=== PATIENT | female | born 1965 | race African-American/Black ===

== ENCOUNTER → 2016-05-05 | Outpatient (CLI) | payer OTHER ==
[~2016-05-05] VITALS: Ht 175.3 cm; Wt 90.7 kg
[~2016-05-05] MED LIST: CALCIUM 500 MG1 EACH PO; CATAPRES0.3 MG PO; HYDROCHLOROTHIA25 MG PO; IRON325 M1 PO; KEPPRA1000 MG PO; LITE COAT ASPI325 M1 PO; MAGNESIUM250 MG PO; MEGA BIOTIN10000 MCG PO; NEURONTIN400 MG PO; NORVASC10 MG PO; OMEGA DHA92 MG PO; PERCOCET 10/1 TABLET PO; RISPERDAL2 MG PO; STOOL SOFTENER100 M1 PO; VALTREX1000 MG PO; VIMPAT50 MG PO; VITAMIN D31000 UNI2 PO; XANAX1 MG PO; ZOCOR40 MG PO; ZOLOFT100 MG PO
== END | disposition home or self-care (01) ==
LOC: AMB 10:59
PROC: 0DJD8ZZ Inspection of Lower Intestinal Tract, Via Natural or Artificial Opening Endoscopic (ICD-10-PCS; principal; 2016-05-05)
DX: Z12.11 Encounter for screening for malignant neoplasm of colon (principal); Z09 Encounter for follow-up examination after completed treatment for conditions other than malignant neoplasm; Z86.010 Personal history of colon polyps; Z53.09 Procedure and treatment not carried out because of other contraindication; K59.00 Constipation, unspecified; I10 Essential (primary) hypertension
CPT/HCPCS: 93005; J2250

== ENCOUNTER 2016-08-03 09:50 | Emergency (ER) | payer OTHER ==
[~2016-08-03] VITALS: Ht 177.8 cm; Wt 91.0 kg
[2016-08-03 10:07] LABS: POINT-OF-CARE METER ID UU13113702; POINT-OF-CARE USER ID NUTJLF39
[2016-08-03 10:28] LABS: ADD MIUA? YES; BILIRUBIN NEGATIVE; BLOOD SMALL; COLOR STRAW ((YELLOW)); GLUCOSE (STRIP) NEGATIVE; KETONES NEGATIVE; LEUKOCYTES NEGATIVE; NITRITE NEGATIVE; PROTEIN (STRIP) NEGATIVE; SPECIFIC GRAVITY 1.013 (1.000-1.030); UROBILINOGEN 0.2 MG/DL (0.2-1.0)
[2016-08-03 10:30] LABS: BACTERIA RARE /HPF; EPITHELIAL CELLS RARE /HPF; MUCUS TRACE /LPF; RED BLOOD CELLS 0-5 /HPF (0-5); UCUL ADDED? NO; WHITE BLOOD CELLS 0-5 /HPF (0-5)
[2016-08-03 10:41] LABS: EOSINOPHIL (%) 1.9 % (0-5); EOSINOPHIL COUNT 0.1 K/uL (0-0.3); HEMATOCRIT 37.8 % (36.0-46.0); IMMATURE GRANULOCYTE (%) 0.5 % (0.0-0.7); INSTRUMENT ABS NEUTROPHIL CT 3.2 K/uL; LYMPHOCYTE COUNT 1.8 K/uL (1.0-2.8); MCH 31.5 PG (29.0-34.0); MCHC 34.1 G/DL (30.0-36.0); MCV 92.2 FL (83-99); MEAN PLAT.VOLUME 10.1 uM^3 (9.5-12.4); MONOCYTE (%) 10.5 % (3-12); MONOCYTE COUNT 0.6 K/uL (0-0.8); NEUTROPHIL (%) 55.9 % (45-76); NEUTROPHIL COUNT 3.2 K/uL (1.8-6.4); PLATELET COUNT 227 K/uL (156-360); RBC DIS.WIDTH-CV 12.1 % (11.8-14.6); RBC DIS.WIDTH-SD 40.8 % (39-53); WHITE BLOOD COUNT 5.8 K/uL (4.1-10.2)
[2016-08-03 10:53] LABS: CHLORIDE 105 mEq/L (99-109); POTASSIUM 3.8 mEq/L (3.7-5.4); SODIUM 140 mEq/L (136-147)
[2016-08-03 10:55] LABS: GLUCOSE 109 mg/dL (70-99)
[2016-08-03 10:56] LABS: ANION GAP 8 MEQ/L (2-14)
[2016-08-03 10:59] LABS: GFR ESTIMATE (CALCULATED) > 59 mL/min/; UREA NITROGEN (BUN) 14 mg/dL (9-23)
[2016-08-03 14:24] LABS: POINT-OF-CARE METER ID UU13113702
[2016-08-03 14:34] VITALS: BP 128/81
== END 2016-08-03 14:35 | disposition home or self-care (01) ==
LOC: EME 09:50
PROVIDERS: Emergency Medicine
DX: E16.2 Hypoglycemia, unspecified (principal); I69.954 Hemiplegia and hemiparesis following unspecified cerebrovascular disease affecting left non-dominant side; I10 Essential (primary) hypertension; Z95.811 Presence of heart assist device; Z95.5 Presence of coronary angioplasty implant and graft; Z79.82 Long term (current) use of aspirin; Z87.891 Personal history of nicotine dependence
CPT/HCPCS: 70450; 80048; 81003; 82948; 85025; 93005; 99281; 99285